=== PATIENT | female | born 1985 | race Caucasian/White ===

== ENCOUNTER 2017-09-30 18:40 | Emergency (ER) | payer BC ==
[2017-09-30 18:58] VITALS: TEMP 36.4; Ht 165.1 cm
[2017-09-30] MEDS ORDERED: ONDANSETRON INJ 2 MG/ML 2 ML VIAL ONE (20:31)
[2017-09-30] MEDS ORDERED: SODIUM CHLORIDE 0.9% 1000ML 1,000 ML IV STA (20:34)
[2017-09-30] MEDS ORDERED: FAMOTIDINE 20MG/5ML IV PUSH IV STA (20:34)
[2017-09-30] MEDS ORDERED: ONDANSETRON INJ 2 MG/ML 2 ML VIAL IV STA (20:34)
[2017-09-30] MEDS ORDERED: GI COCKTAIL PO STA (20:38)
[2017-09-30 20:52] LABS: HEMATOCRIT 46.7 % (37-47); HEMOGLOBIN 16.4 g/dL (12.0-16.0); MEAN CELL VOLUME 86.5 fL (80-100); MEAN CORPUSCULAR HEMOGLOBIN 30.4 pg (25-34); MEAN CORPUSCULAR HGB CONC 35.1 g/dl (32-36); MEAN PLATELET VOLUME 10.5 fL (7.4-10.4); PLATELET COUNT 417 K/uL (130-400); RED CELL DISTRIBUTION WIDTH CV 13.8 % (11.5-14.5); RED CELL DISTRIBUTION WIDTH SD 43.1 fL (36.4-46.3); WHITE BLOOD COUNT 26.59 K/uL (4.8-10.8)
[2017-09-30] MEDS ORDERED: ALUMINUM/MAGNESIUM SUSP 30 ML UDC ONE (20:56)
[2017-09-30] MEDS ORDERED: LIDOCAINE HCL 2% VISC SOLN 20 ML UDC ONE (20:56)
[2017-09-30 21:20] LABS: BASO % 0.2 %; BASO ABS # 0.04 K/uL (0-0.2); EOS % 0.7 %; EOS ABS # 0.19 K/uL (0-0.5); IG# 0.11 K/uL (0.00-0.02); LYMPH % 7.3 %; LYMPH ABS # 1.94 K/uL (1.2-3.4); MONO % 5.2 %; MONO ABS # 1.37 K/uL (0.11-0.59); NEUT % 86.2 %; NEUT ABS # 22.94 K/uL (1.4-6.5)
[2017-09-30 21:29] LABS: ALBUMIN 3.6 gm/dl (3.4-5.0); ALKALINE PHOSPHATASE 115 U/L (45-117); ALT/SGPT 41 U/L (12-78); AST/SGOT 25 U/L (15-37); BLOOD UREA NITROGEN 14 mg/dl (7-18); CALCIUM 8.9 mg/dl (8.5-10.1); CARBON DIOXIDE 22 mmol/L (21-32); CREATININE 0.87 mg/dl (0.60-1.20); GLUCOSE 112 mg/dl (70-99); LIPASE 103 U/L (73-393); POTASSIUM 3.8 mmol/L (3.5-5.1); SODIUM 141 mmol/L (136-145); TOTAL PROTEIN 7.7 gm/dl (6.4-8.2)
--- NOTE | 2017-09-30 21:38 | DIAGNOSTIC IMAGING REPORT ---
ABDOMEN 2VIEW W/PA CHEST RTN CLINICAL HISTORY: Epigastric pain with vomiting. COMPARISON STUDY: No previous studies for comparison. FINDINGS: The erect chest reveals no free intraperitoneal air. There is no focal pulmonary consolidation. Erect and supine views the abdomen reveal no abnormally dilated loops of large or small bowel. There are few scattered colonic air-fluid levels. IMPRESSION: Scattered colonic air-fluid levels. No evidence of bowel obstruction. No evidence of free intraperitoneal air. Electronically signed by: Jason Whitlock M.D. 09/30/2017 9:36 PM Dictated Date/Time: 09/30/2017 9:36 PM
[2017-09-30] MEDS ORDERED: OPTIRAY 320 IV PRN (22:30)
--- NOTE | 2017-09-30 22:34 | DIAGNOSTIC IMAGING REPORT ---
CT ABD/PELVIS IV CONTRAST ONLY CLINICAL HISTORY: Abdominal pain and vomiting COMPARISON STUDY: Conventional radiographic study dated to 518 TECHNIQUE: Following the IV administration of 92 mL of Optiray-320, CT scan of the abdomen and pelvis was performed from the lung bases to the proximal femurs. Images are reviewed in the axial, sagittal, and coronal planes. IV contrast was administered without complication. A dose lowering technique was utilized adhering to the principles of ALARA. CT DOSE: 1330.77 mGy.cm FINDINGS: Lower chest: The heart is normal in size and configuration, without pericardial effusion. The lung bases and pleural spaces are clear. Liver: The contrast-enhanced liver is normal in size, contour, and attenuation. There is no intrahepatic biliary ductal dilatation. The hepatic veins and portal veins are patent. Gallbladder: Unremarkable. Spleen: Normal in size and attenuation. Pancreas: Unremarkable. Adrenal glands: Unremarkable. Kidneys: There is symmetric renal cortical enhancement. The kidneys are normal in size without hydronephrosis. Bowel: There are no transition zones to indicate bowel obstruction. The appendix appears normal. There is no evidence of acute diverticulitis. There are few scattered colonic air-fluid levels. Peritoneum: There is no intraperitoneal free air or abdominal ascites. Vasculature: The abdominal aorta is normal in course and caliber. Adenopathy: None. Pelvic viscera: There is a 10 cm pelvic cyst abutting the left ovary, and likely of ovarian or paraovarian origin. No mural nodules or septations are visualized on CT imaging Skeletal structures: No destructive osseous lesions are seen. IMPRESSION: 1. No evidence of bowel obstruction. No evidence of free air 2. Normal appendix 3. 10 cm relatively midline cystic pelvic mass, likely arising from the left ovary. Gynecological consultation is recommended Electronically signed by: Jason Whitlock M.D. 09/30/2017 10:33 PM Dictated Date/Time: 09/30/2017 10:26 PM
--- NOTE | 2017-09-30 22:52 | EMERGENCY ROOM VISIT NOTE ---
History First contact with patient: 20:07 Chief Complaint: GI ASSESSMENT Stated Complaint: VOMITTING BLOOD Nursing Triage Summary: Patient reports that she has had epigastric pain today. Patient has been vomiting "for the majority of the day." Patient reports that she had two episodes of emesis that were tinged with bright red blood. Patient reports diarrhea. History of Present Illness The patient is a 32 year old female who presents to the Emergency Room with complaints of epigastric pain, nausea and vomiting that started today around 2 PM. Patient states initially her vomit looked like it was mixed with some dark red, the past several time she has been vomiting clear yellow fluid. She does state that she ate some lasagna and drink cranberry juice earlier in the day. She reports that her epigastric pain started shortly before she began to vomit, the pain gets worse right before vomiting, then feels a little bit better after she vomits. She reports the pain is constant, sharp and burning, does not radiate, 10/10 currently. She states that she took some Tums earlier which seemed to help her symptoms, and she also took some Tylenol. She has also had some associated diarrhea and chills, but denies any fevers. She states that she had similar symptoms a week ago of nausea, vomiting, and diarrhea. She states that she has had positive sick contacts with GI symptoms recently. She denies any lower abdominal pain, bloody or black stools, dysuria or urinary frequency, abnormal vaginal discharge. She states she is currently on her menses. She reports a history of a large left ovarian cyst and she is being followed by gynecology for this. She denies any history of abdominal surgeries. She denies any other symptoms of headaches, neck pain or stiffness, chest pain, shortness of breath, back pain, dizziness or syncope, or rash. Review of Systems A complete 10 point review of systems was reviewed with the patient with pertinent positives and negatives as per history of present illness. All else were negative. Past Medical/Surgical History Prediabetes, hypertension, hyperlipidemia -- she states she is not on any medications currently for this. Left ovarian cyst Social History Smoking Status: Never Smoker Alcohol Use: none Drug Use: none Allergies No known allergies Physical Exam Vital Signs Date Time Temp Pulse Resp B/P (MAP) Pulse Ox O2 Delivery O2 Flow Rate FiO2 09/30/17 23:29 82 20 123/87 97 Room Air 09/30/17 22:28 85 20 137/88 92 Room Air 09/30/17 21:00 82 20 136/80 96 Room Air 09/30/17 20:56 88 09/30/17 18:58 36.4 111 20 140/87 98 Room Air Physical Exam CONSTITUTIONAL: Pleasant and cooperative. No acute distress, but appears uncomfortable throughout exam. Mildly dehydrated, but otherwise well appearing and well nourished. Obese. HEENT: Normocephalic, atraumatic. Pupils equal, round and reactive to light, EOMI. TMs normal. Pharynx normal. Tacky mucous membranes. NECK: Supple, full active range of motion without discomfort. No cervical adenopathy. RESPIRATORY: Clear to auscultation bilaterally with no wheezing, crackles, rhonchi or stridor. Equal expansion bilaterally. CARDIOVASCULAR: Regular rate and rhythm with no murmurs, rubs or gallops. Normal peripheral perfusion. No edema. GASTROINTESTINAL: Soft, tender to palpation in the epigastric region, abdomen is otherwise nontender, nondistended, obese. No rebound tenderness or guarding. No CVA tenderness. No palpable masses or HSM. Bowel sounds present in all quadrants. MUSCULOSKELETAL: Full range of motion of all joints without discomfort. INTEGUMENTARY: No rash or other significant dermatologic conditions noted. NEUROLOGIC: Alert and oriented X 4 with normal affect. Normal strength and sensation in all 4 extremities.. No focal neurologic deficits noted. Normal speech. Normal gait observed. Medical Decision & Procedures ER Provider Diagnostic Interpretation: ABDOMEN 2VIEW W/PA CHEST RTN CLINICAL HISTORY: Epigastric pain with vomiting. COMPARISON STUDY: No previous studies for comparison. FINDINGS: The erect chest reveals no free intraperitoneal air. There is no focal pulmonary consolidation. Erect and supine views the abdomen reveal no abnormally dilated loops of large or small bowel. There are few scattered colonic air-fluid levels. IMPRESSION: Scattered colonic air-fluid levels. No evidence of bowel obstruction. No evidence of free intraperitoneal air. ----- CT ABD/PELVIS IV CONTRAST ONLY CLINICAL HISTORY: Abdominal pain and vomiting COMPARISON STUDY: Conventional radiographic study dated to TECHNIQUE: Following the IV administration of 92 mL of Optiray-320, CT scan of the abdomen and pelvis was performed from the lung bases to the proximal femurs. Images are reviewed in the axial, sagittal, and coronal planes. IV contrast was administered without complication. A dose lowering technique was utilized adhering to the principles of ALARA. CT DOSE: 1330.77 mGy.cm FINDINGS: Lower chest: The heart is normal in size and configuration, without pericardial effusion. The lung bases and pleural spaces are clear. Liver: The contrast-enhanced liver is normal in size, contour, and attenuation. There is no intrahepatic biliary ductal dilatation. The hepatic veins and portal veins are patent. Gallbladder: Unremarkable. Spleen: Normal in size and attenuation. Pancreas: Unremarkable. Adrenal glands: Unremarkable. Kidneys: There is symmetric renal cortical enhancement. The kidneys are normal in size without hydronephrosis. Bowel: There are no transition zones to indicate bowel obstruction. The appendix appears normal. There is no evidence of acute diverticulitis. There are few scattered colonic air-fluid levels. Peritoneum: There is no intraperitoneal free air or abdominal ascites. Vasculature: The abdominal aorta is normal in course and caliber. Adenopathy: None. Pelvic viscera: There is a 10 cm pelvic cyst abutting the left ovary, and likely of ovarian or paraovarian origin. No mural nodules or septations are visualized on CT imaging Skeletal structures: No destructive osseous lesions are seen. IMPRESSION: 1. No evidence of bowel obstruction. No evidence of free air 2. Normal appendix 3. 10 cm relatively midline cystic pelvic mass, likely arising from the left ovary. Gynecological consultation is recommended Laboratory Results 09/30/17 20:26 Red Blood Count 5.40, Mean Corpuscular Volume 86.5, Mean Corpuscular Hemoglobin 30.4, Mean Corpuscular Hemoglobin Concent 35.1, Mean Platelet Volume 10.5, Neutrophils (%) (Auto) 86.2, Lymphocytes (%) (Auto) 7.3, Monocytes (%) (Auto) 5.2, Eosinophils (%) (Auto) 0.7, Basophils (%) (Auto) 0.2, Neutrophils # (Auto) 22.94, Lymphocytes # (Auto) 1.94, Monocytes # (Auto) 1.37, Eosinophils # (Auto) 0.19, Basophils # (Auto) 0.04 09/30/17 20:26 Test 09/30/17 20:26 09/30/17 22:40 White Blood Count 26.59 K/uL (4.8-10.8) Red Blood Count 5.40 M/uL (4.2-5.4) Hemoglobin 16.4 g/dL (12.0-16.0) Hematocrit 46.7 % (37-47) Mean Corpuscular Volume 86.5 fL (80-100) Mean Corpuscular Hemoglobin 30.4 pg (25-34) Mean Corpuscular Hemoglobin Concent 35.1 g/dl (32-36) Platelet Count 417 K/uL (130-400) Mean Platelet Volume 10.5 fL (7.4-10.4) Neutrophils (%) (Auto) 86.2 % Lymphocytes (%) (Auto) 7.3 % Monocytes (%) (Auto) 5.2 % Eosinophils (%) (Auto) 0.7 % Basophils (%) (Auto) 0.2 % Neutrophils # (Auto) 22.94 K/uL (1.4-6.5) Lymphocytes # (Auto) 1.94 K/uL (1.2-3.4) Monocytes # (Auto) 1.37 K/uL (0.11-0.59) Eosinophils # (Auto) 0.19 K/uL (0-0.5) Basophils # (Auto) 0.04 K/uL (0-0.2) RDW Standard Deviation 43.1 fL (36.4-46.3) RDW Coefficient of Variation 13.8 % (11.5-14.5) Immature Granulocyte % (Auto) 0.4 % Immature Granulocyte # (Auto) 0.11 K/uL (0.00-0.02) Anion Gap 10.0 mmol/L (3-11) Estimated GFR () 101.4 Estimated GFR (Non- 87.5 BUN/Creatinine Ratio 15.7 (10-20) Calcium Level 8.9 mg/dl (8.5-10.1) Total Bilirubin 0.3 mg/dl (0.2-1) Direct Bilirubin mg/dl (0-0.2) Aspartate Amino Transf (AST/SGOT) 25 U/L (15-37) Alanine Aminotransferase (ALT/SGPT) 41 U/L (12-78) Alkaline Phosphatase 115 U/L (45-117) Total Protein 7.7 gm/dl (6.4-8.2) Albumin 3.6 gm/dl (3.4-5.0) Lipase 103 U/L (73-393) Chemistry Specimen Hemolysis Urine Color YELLOW Urine Appearance CLEAR (CLEAR) Urine pH 5.0 (4.5-7.5) Urine Specific [place] > 1.045 (1.000-1.030) Urine Protein NEG (NEG) Urine Glucose (UA) NEG (NEG) Urine Ketones 1+ (NEG) Urine Occult Blood NEG (NEG) Urine Nitrite NEG (NEG) Urine Bilirubin NEG (NEG) Urine Urobilinogen NEG (NEG) Urine Leukocyte Esterase NEG (NEG) Urine Test NEG (NEG) Medications Administered Medications (Trade) Dose Ordered Sig/Michelle Route Start Time Stop Time Status Last Admin Dose Admin Sodium Chloride 1,000 ml @ 999 mls/hr Q1H1M STAT IV 09/30/17 20:34 09/30/17 21:34 DC 09/30/17 20:34 999 MLS/HR Ondansetron HCl (Zofran Inj) 4 mg NOW STAT IV 09/30/17 20:34 09/30/17 20:36 DC 09/30/17 20:58 4 MG Famotidine (Pepcid 20mg Iv Push) 20 mg NOW STAT IV 09/30/17 20:34 09/30/17 20:36 DC 09/30/17 20:58 20 MG Lidocaine HCl (Viscous Lidocaine 2% Soln) 20 ml STK-MED ONCE .ROUTE 09/30/17 20:56 09/30/17 20:57 DC 09/30/17 20:58 20 ML Al Hydroxide/Mg Hydroxide (Maalox Susp) 30 ml STK-MED ONCE .ROUTE 09/30/17 20:56 09/30/17 20:57 DC 09/30/17 20:58 30 ML Ondansetron HCl (ZOFRAN ODT 4MG Home Pack) 1 homepack UD ONCE PO 09/30/17 23:15 09/30/17 23:16 DC 09/30/17 23:28 1 [email or web address] Medical Decision CC: Patient presenting with complaint of epigastric pain with nausea and vomiting, diarrhea Interpretation of Labs: Significant leukocytosis with left shift, no anemia, no significant electrolyte abnormalities, normal renal function, normal liver enzymes and lipase. UA consistent with dehydration, negative for infection, urine negative. Differential Diagnosis: Includes, but not limited to gastroenteritis, gastritis , food poisoning, peptic ulcer disease, GERD, cholecystitis, pancreatitis, appendicitis, diverticulitis, bowel obstruction, bowel perforation, among others. Medication Reconciliation: I attest that I have personally reviewed the patient' s current medication list. Initial vital signs review: I reviewed the patient's vital signs and interpret them as follows: T: Afebrile; BP: Hypertensive; HR: Tachycardic; RR: Within normal limits; Pulse Ox: Within normal limits on room air. Blood pressure screening: The patient was found to have an elevated blood pressure and was referred to their primary doctor for recheck and further treatment. Summary: Patient was evaluated at bedside, history and physical exam performed. Patient is alert and oriented, no acute distress, sitting calmly in the stretcher. Patient does have moderate tenderness to the epigastric area with palpation, the abdomen is otherwise soft and nontender. Patient reports vomiting up some dark red vomit, but does admit that she had been eating and drinking some red colored foods. The last several times she has vomited has been clear yellow. Orders were placed at bedside for labs, UA and urine , IV fluids for hydration, IV Zofran for nausea, IV Pepcid and GI cocktail for pain, acute abdominal series to evaluate for obstruction or free air. Patient discussed with Dr. Vega, who agrees with my assessment and plan. Labs reviewed as above, notable for significant leukocytosis, otherwise unremarkable. Abdominal x-ray series is unremarkable. Given patient's continued abdominal tenderness and significant leukocytosis, CT of the abdomen and pelvis was ordered to evaluate for further infectious etiology. CT imaging reviewed, no acute abnormalities. Of note, she does have a 10 cm ovarian cyst. Patient was made aware of the CT findings, she already knows about her ovarian cyst, and she was encouraged to continue following with her cushion stuffer. Given the abruptness of patient's symptoms with vomiting and diarrhea, I suspect she may have some form of gastroenteritis or food poisoning. Patient reassessed multiple times throughout ED stay, she did feel improved after medications and IV fluids, and is now tolerating oral fluids without difficulty. Tachycardia is improved after IV fluids. Patient was provided with Zofran take home pack for continued management of her nausea. The patient was updated on all results and plan for discharge home, she was encouraged to follow up with her family doctor as needed, and to consider follow -up with a regulatory compliance coordinator if her symptoms persist. The patient was also given strict return precautions should her symptoms worsen , she verbalized understanding. The patient was discharged home in stable condition and ambulatory Impression Primary Impression: Acute epigastric pain Additional Impressions: Nausea and vomiting Leukocytosis Departure Information Dispostion Home / Self-Care Condition GOOD Referrals No Doctor, Assigned (PCP) Cyndee Elizabeth M.D. Patient Instructions ED Diet Vomiting Diarrhea, ED Epigastric Pain [facility], ED Food Poison Or Gastroenteritis, [facility] Additional Instructions You have been treated in the Emergency Department your Abdominal Pain, nausea and vomiting. Laboratory results and imaging studies have ruled out any emergent causes for your abdominal pain which would warrant admission or surgery. You have been provided with Zofran to be used every 6-8 hours as needed for any nausea or vomiting. Take as prescribed. You should start taking Pepcid 20 mg (acid ink maker) twice a day to help manage your stomach pain. For additional pain control, you may take regular strength (325mg/tab) Tylenol ( acetaminophen) 2 tabs every 4-6 hours as needed. Do not exceed 10 tablets in a 24 hour period. Avoid taking more than 3000 mg of Tylenol per day. This includes any other sources of acetaminophen you may take on a regular basis. Avoid NSAIDs such as Advil, Aleve, Motrin, ibuprofen, aspirin, etc. as these medications may irritate your stomach pain. You were found to be dehydrated today, it is important that you drink plenty of fluids to stay well hydrated. As with any trip to the Emergency Department, you should follow-up with your Primary Care Provider in the next few days for recheck. You may also benefit from evaluation by a regulatory compliance coordinator if your stomach pain and vomiting persists. Please return to the emergency department for any worsening symptoms, including severe worsening pain, severe nausea/vomiting, vomiting bright red blood or bile , unable to keep down any fluids or concern for dehydration, severe dizziness or passing out, fevers greater than 101.5, or any other concerns. Work Instructions Return To Work: 2 days Problem Qualifiers Additional Impressions: Nausea and vomiting Vomiting type: unspecified Vomiting Intractability: non-intractable Qualified Codes: R11.2 - Nausea with vomiting, unspecified Leukocytosis Leukocytosis type: unspecified Qualified Codes: D72.829 - Elevated white blood cell count, unspecified
[2017-09-30] MEDS ORDERED: ONDANSETRON HOME PACK 4MG OD TAB PO ONE (23:15)
[2017-09-30 23:29] VITALS: BP 123/87; PULSE 82; O2SAT 97
== END 2017-09-30 23:54 | disposition home or self-care (01) ==
LOC: C.EDB 18:43 → C.EDC 23:54
DX: R10.13 Epigastric pain (principal); R11.2 Nausea with vomiting, unspecified; D72.829 Elevated white blood cell count, unspecified; R73.03 Prediabetes; I10 Essential (primary) hypertension; E78.5 Hyperlipidemia, unspecified; N83.202 Unspecified ovarian cyst, left side